=== PATIENT | female | born 1975 | race American Indian/Alaskan Native ===

== ENCOUNTER 2017-01-21 19:45 | Emergency (ER) | payer BC, OTHER ==
[2017-01-21 20:06] VITALS: RESP 20; TEMP 98.6
--- NOTE | 2017-01-21 20:27 | C.PDOC ---
History Of Present Illness 41 yr old female with history of anxiety, presents to the ER with complaints of feeling lightheaded, SOB and palpitations after visiting the hospital where her aunt recently . Patient states she now feels better but is requesting a dose of her anxiety medications. Otherwise patient denies chest pain, diaphoresis, vision changes, weakness or numbness. 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) Past Medical History Reviewed: Historical Data, Nursing Documentation, Vital Signs Vital Signs: Last Vital Signs Temp 98.6 F 01/21/17 20:01 Pulse 79 01/21/17 20:56 Resp 20 01/21/17 20:56 BP 132/78 01/21/17 20:56 Pulse Ox 100 01/21/17 21:45 - Medical History PMH: Anxiety, Back Problems Family History: States: No Known Family Hx - Social History Hx Tobacco Use: No Hx Alcohol Use: Yes Hx Substance Use: No - Immunization History Hx Tetanus Toxoid Vaccination: No Hx Influenza Vaccination: No Hx Pneumococcal Vaccination: No Review Of Systems Except As Marked, All Systems Reviewed And Found Negative. Eyes: Negative for: Vision Change Cardiovascular: Positive for: Palpitations, Light Headedness. Negative for: Chest Pain Respiratory: Positive for: Shortness of Breath Neurological: Negative for: Weakness, Numbness Physical Exam - Physical Exam Appears: Non-toxic, Other (Anxious) Skin: Warm, Dry, No Rash Head: Atraumatic, Normacephalic Oral Mucosa: Moist Chest: Symmetrical, No Tenderness Cardiovascular: Rhythm Regular, No Murmur Respiratory: Normal Breath Sounds, No Rales, No Rhonchi, No Stridor, No Wheezing Extremity: Normal ROM, No Swelling Neurological/Psych: Oriented x3, Normal Speech, Normal Motor, Normal Sensation ED Course And Treatment O2 Sat by Pulse Oximetry: 100 (RA) Pulse Ox Interpretation: Normal Medical Decision Making Medical Decision Making: PLAN: * Atarax PO Pt appears well, AAO x 3 in no acute resp distress, requesting to leave with relative at bedside. 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 - Scribe Statement The provider has reviewed the documentation as recorded by the Scribe Margaux Olmedo All medical record entries made by the Scribe were at my direction and personally dictated by me. I have reviewed the chart and agree that the record accurately reflects my personal performance of the history, physical exam, medical decision making, and the department course for this patient. I have also personally directed, reviewed, and agree with the discharge instructions and disposition.
[2017-01-21 20:57] VITALS: BP 132/78; PULSE 79
[2017-01-21 21:44] VITALS: O2SAT 100
== END 2017-01-21 20:57 | disposition home or self-care (01) ==
LOC: C.ER 19:45
DX: F41.9 Anxiety disorder, unspecified (principal)